=== PATIENT | female | born 1995 | race Caucasian/White ===

== ENCOUNTER → 2016-11-04 | Outpatient (CLI) | payer OTHER ==
--- NOTE | 2016-11-06 09:52 | ECHO ---
DATE OF STUDY: 11/04/2016 REFERRING PHYSICIAN: Dr. Vivien Arnold HEIGHT: 68 inches. WEIGHT: 200 pounds. INDICATION: Shortness of breath. MEASUREMENTS: Left atrium: 3.0 cm Ventricular septum: 0.94 cm Posterior wall: 1.07 cm Left ventricle diastole: 4.8 cm Aortic root: 2.9 cm LVOT: 2.9 cm Inferior vena cava: 1.8 cm (greater than 50% respiratory variation) DOPPLER MEASUREMENTS: Aortic valve velocity: 142 cm/s LVOT velocity: 104 cm/s LVOT VTI: 20.8 cm Mitral E velocity: 76.0 cm/s Mitral A velocity: 47.9 cm/s Mitral deceleration time 197 ms Very mild tricuspid regurgitation. Estimated right ventricle systolic pressure: 24 mmHg assuming a right atrial pressure of 5 mmHg Pulmonary artery acceleration time: 173 ms (normal) MITRAL ANNULAR TISSUE DOPPLER: E prime septal: 11.0 cm/s E prime lateral: 21.8 cm/s DESCRIPTION: Rhythm was sinus. Image quality was adequate. No pericardial effusion. This was a 2D, M-mode, color flow Doppler, and pulse wave Doppler examination and included mitral annular tissue Doppler. Left ventricle is normal in size and internal dimensions. Normal left ventricle (LV) wall motion and wall thickening. Normal LV systolic and diastolic function. Normal right ventricle size and systolic function. Left ventricular ejection fraction (LVEF) 60% by visual estimate. Atria were normal in size. No pericardial effusion. All of the cardiac valves were structurally and functionally normal. Very mild tricuspid regurgitation was present within physiologic limits. Estimated right ventricle systolic pressure normal. CONCLUSIONS: 1. Normal echocardiogram/Doppler. 2. Normal estimated right ventricle systolic pressure. 3. Normal left ventricle size, wall thickness, wall motion, LV systolic function, and LV diastolic function.
== END | disposition home or self-care (01) ==
LOC: M CARPUL 08:25
PROVIDERS: ATTEND Nurse Practitioner Family
DX: R00.2 Palpitations (principal)

== ENCOUNTER → 2022-11-24 | Outpatient (CLI) | payer BC ==
[2022-11-24 10:31] LABS: HEMATOCRIT 38.8 % (36.0-47.0); HEMOGLOBIN 12.2 g/dl (12.0-15.5); MEAN CORPUSCULAR HEMOGLOBIN 29.3 pg (27.0-33.0); MEAN CORPUSCULAR HGB CONC 31.4 g/dl (32.0-36.5); MEAN CORPUSCULAR VOLUME 93.3 fl (80.0-96.0); PLATELET COUNT, AUTOMATED 338 10^3/uL (150-450); RED BLOOD COUNT 4.16 10^6/uL (4.00-5.40)
[2022-11-24 11:00] LABS: TOTAL IRON BINDING CAPACITY 334 UG/DL (250-425)
[2022-11-24 11:01] LABS: ALBUMIN 3.6 G/DL (3.2-5.2); ALKALINE PHOSPHATASE 75 U/L (46-116); ALT/SGPT 22 U/L (7.0-40); AST/SGOT 20 U/L (<34); BILIRUBIN,TOTAL 0.6 MG/DL (0.3-1.2); BLOOD UREA NITROGEN 13 MG/DL (9-23); CALCIUM LEVEL 8.7 MG/DL (8.5-10.1); CARBON DIOXIDE LEVEL 29 MMOL/L (20-31); CHLORIDE LEVEL 104 MMOL/L (98-107); CHOLESTEROL LEVEL 158 MG/DL (<200); CREATININE FOR GFR 0.91 MG/DL (0.55-1.30); GLOMERULAR FILTRATION RATE > 60.0 (>60); GLUCOSE, FASTING 90 MG/DL (60-100); HCG, SERUM QUANTITATIVE < 2.6 MIU/ML (<4.2); HDL CHOLESTEROL 45.1 MG/DL (>40); IRON (FE) 70 UG/DL (50-170); LDL CHOLESTEROL 102.5 MG/DL (<100); NON-HDL-C 113 MG/DL; POTASSIUM SERUM 4.6 MMOL/L (3.5-5.1); SODIUM LEVEL 139 MMOL/L (136-145); TOTAL PROTEIN 6.8 G/DL (5.7-8.2); TRIGLYCERIDES LEVEL 52 MG/DL (<150)
[2022-11-24 11:03] LABS: FERRITIN 52.3 NG/ML (7.3-270.7)
[2022-11-24 11:04] LABS: FOLLICLE STIMULATING HORMONE 1.9 mIU/ML; THYROID STIMULATING HORMONE 1.621 uIU/ML (0.55-4.78)
[2022-11-24 11:05] LABS: PROLACTIN 11.77 NG/ML
== END ==
LOC: M PLALAB 07:36
PROVIDERS: ATTEND Student in an Organized Health Care Education/Training Program
DX: R10.9 Unspecified abdominal pain (principal); D50.9 Iron deficiency anemia, unspecified; N91.2 Amenorrhea, unspecified; E66.01 Morbid (severe) obesity due to excess calories

== ENCOUNTER → 2022-12-02 | Outpatient (CLI) | payer BC | LOC: M WHC 08:02 | PROVIDERS: ATTEND Nurse Practitioner Family | DX: N92.1 Excessive and frequent menstruation with irregular cycle (principal); N94.6 Dysmenorrhea, unspecified ==

== ENCOUNTER → 2022-12-02 | Outpatient (CLI) | payer BC ==
[2022-12-02 13:35] LABS: BASO % 0.5 % (0.0-1.0); EOS # 0.1 10^3/uL (0.0-0.5); EOS % 1.5 % (0.0-3.0); HEMATOCRIT 35.5 % (36.0-47.0); HEMOGLOBIN 11.3 g/dl (12.0-15.5); LYMPH # 2.4 10^3/uL (1.5-5.0); LYMPH % 31.7 % (24.0-44.0); MEAN CORPUSCULAR HEMOGLOBIN 29.5 pg (27.0-33.0); MEAN CORPUSCULAR HGB CONC 31.8 g/dl (32.0-36.5); MEAN CORPUSCULAR VOLUME 92.7 fl (80.0-96.0); MONO # 0.5 10^3/uL (0.0-0.8); NEUTROPHILS # 4.5 10^3/uL (1.5-8.5); PLATELET COUNT, AUTOMATED 358 10^3/uL (150-450); RED BLOOD COUNT 3.83 10^6/uL (4.00-5.40); WHITE BLOOD COUNT 7.6 10^3/uL (4.0-10.0)
[2022-12-02 13:48] LABS: HEMOGLOBIN A1c 4.9 % (4.0-6.0)
[2022-12-02 14:04] LABS: FREE T4 0.97 NG/DL (0.89-1.76); THYROID STIMULATING HORMONE 1.709 uIU/ML (0.55-4.78)
== END ==
LOC: M PLALAB 09:15
PROVIDERS: ATTEND Nurse Practitioner Family
DX: N92.1 Excessive and frequent menstruation with irregular cycle (principal)

== ENCOUNTER → 2022-12-09 | Outpatient (CLI) | payer BC | LOC: M PLAIMG 08:52 | PROVIDERS: ATTEND Student in an Organized Health Care Education/Training Program | DX: R10.9 Unspecified abdominal pain (principal) ==

== ENCOUNTER → 2022-12-14 | Outpatient (REF) | payer BC ==
[2022-12-15 12:17] LABS: GC DNA AMPLIFICATION NEGATIVE (NEGATIVE)
== END ==
LOC: M SFHCWAGY 10:25
PROVIDERS: ATTEND Nurse Practitioner Family
DX: Z11.3 Encounter for screening for infections with a predominantly sexual mode of transmission (principal)

== ENCOUNTER → 2022-12-25 | Outpatient (CLI) | payer BC ==
[2022-12-25 14:56] LABS: HEPATITIS B SURFACE ANTIGEN NEGATIVE (NEGATIVE)
[2022-12-25 15:08] LABS: HIV 1&2 SCREEN CENTAUR NEGATIVE (NEGATIVE)
[2022-12-25 15:16] LABS: HEPATITIS B CORE ANTIBODY IGM NEGATIVE (NEGATIVE)
== END ==
LOC: M PLALAB 09:21
PROVIDERS: ATTEND Nurse Practitioner Family
DX: Z11.3 Encounter for screening for infections with a predominantly sexual mode of transmission (principal)

== ENCOUNTER → 2022-12-30 | Outpatient (CLI) | payer BC | LOC: M LABSMTC 07:42 | PROVIDERS: ATTEND Physician Assistant | DX: Z01.818 Encounter for other preprocedural examination (principal); E66.01 Morbid (severe) obesity due to excess calories ==

== ENCOUNTER 2023-03-25 04:11 | Inpatient (IN) | payer BC, OTHER ==
[2023-03-25] VITALS (13 sets, daily range): BP systolic 124–134; BP diastolic 59–83; O2SAT 88–94
[~2023-03-25] VITALS: Ht 172.7 cm; Wt 141.0 kg
[2023-03-25] MEDS ORDERED: IPRATROPIUM 0.5MG/ALBUTEROL 2.5MG INH SOL UD 3ML (DUONEB) As Ordered ONE (04:20)
[2023-03-25] MEDS ORDERED: IPRATROPIUM 0.5MG/ALBUTEROL 2.5MG INH SOL UD 3ML (DUONEB) NEB ONE (04:25)
[2023-03-25] MEDS ORDERED: ISOVUE-370 76% 100ML VIAL As Ordered ONE (04:39)
[2023-03-25 04:42] LABS: BASO # 0.1 10^3/uL (0.0-0.2); BASO % 0.4 % (0.0-1.0); EOS # 0.1 10^3/uL (0.0-0.5); EOS % 0.8 % (0.0-3.0); HEMATOCRIT 40.7 % (36.0-47.0); HEMOGLOBIN 13.2 g/dl (12.0-15.5); LYMPH # 3.9 10^3/uL (1.5-5.0); LYMPH % 24.9 % (24.0-44.0); MEAN CORPUSCULAR HEMOGLOBIN 29.5 pg (27.0-33.0); MEAN CORPUSCULAR HGB CONC 32.4 g/dl (32.0-36.5); MEAN CORPUSCULAR VOLUME 90.8 fl (80.0-96.0); MONO # 0.9 10^3/uL (0.0-0.8); MONO % 5.8 % (2.0-8.0); NEUTROPHILS # 10.7 10^3/uL (1.5-8.5); NEUTROPHILS % 67.7 % (36.0-66.0); PLATELET COUNT, AUTOMATED 316 10^3/uL (150-450); RED BLOOD COUNT 4.48 10^6/uL (4.00-5.40); WHITE BLOOD COUNT 15.8 10^3/uL (4.0-10.0)
[2023-03-25 04:53] LABS: INR 0.9; PARTIAL THROMBOPLASTIN TIME 24.2 SECONDS (24.8-34.2); PROTHROMBIN TIME 12.3 SECONDS (12.5-14.5)
[2023-03-25 05:10] LABS: LIPASE 34 U/L (12-53)
[2023-03-25 05:11] LABS: CK-MB VALUE MASS < 1.0 NG/ML (<3.6)
[2023-03-25 05:12] LABS: CPK CREATINE PHOSPHOKINASE 76 U/L (34-145); MB/CK RELATIVE INDEX 1.31 (< OR =4)
[2023-03-25 05:13] LABS: ALBUMIN 3.3 G/DL (3.2-5.2); ALKALINE PHOSPHATASE 67 U/L (46-116); ALT/SGPT 12 U/L (7.0-40); AST/SGOT 15 U/L (<34); BILIRUBIN,TOTAL 0.3 MG/DL (0.3-1.2); BLOOD UREA NITROGEN 14 MG/DL (9-23); CALCIUM LEVEL 8.1 MG/DL (8.5-10.1); CARBON DIOXIDE LEVEL 24 MMOL/L (20-31); CHLORIDE LEVEL 106 MMOL/L (98-107); CREATININE FOR GFR 0.99 MG/DL (0.55-1.30); GLOMERULAR FILTRATION RATE > 60.0 (>60); GLUCOSE, FASTING 119 MG/DL (60-100); MAGNESIUM LEVEL 1.6 MG/DL (1.8-2.4); POTASSIUM SERUM 3.9 MMOL/L (3.5-5.1); SODIUM LEVEL 141 MMOL/L (136-145); TOTAL PROTEIN 6.7 G/DL (5.7-8.2)
[2023-03-25 05:26] LABS: HCG, SERUM QUALITATIVE NEGATIVE (NEGATIVE)
[2023-03-25] MEDS ORDERED: MAG SULF 1GM/100ML (MAG RUN) 1 GM in IV 1 EA IV ONE (05:50)
[2023-03-25 06:15] LABS: CK-MB VALUE MASS < 1.0 NG/ML (<3.6)
[2023-03-25 06:16] LABS: CPK CREATINE PHOSPHOKINASE 71 U/L (34-145)
[2023-03-25] MEDS ORDERED: HEPARIN SOD (PORCINE) 5000UNITS/ML 1ML VIAL/SYRINGE IV PRN ×2 (06:30→10:55)
[2023-03-25] MEDS ORDERED: HEPARIN DRIP 25,000 UNITS in IV 1 EA IV SCH (06:30)
[2023-03-25] MEDS ORDERED: HEPARIN SOD (PORCINE) 5000UNITS/ML 1ML VIAL/SYRINGE IV ONE (06:30)
[2023-03-25] MEDS ORDERED: HOME MED LIST COMPLETE! XX SCH (06:45)
[2023-03-25] MEDS ORDERED: LAMO100T3 PO (06:45)
[2023-03-25] MEDS ORDERED: LORY1TAB2 PO (06:45)
[2023-03-25] MEDS ORDERED: LEXA1TAB2 PO (06:45)
[2023-03-25] MEDS ORDERED: GUAI1TAB72 PO (06:45)
[2023-03-25] MEDS ORDERED: ALBUTEROL SULFATE 2.5MG/0.5ML INH NEB SOLN NEB PRN (09:55)
[2023-03-25] MEDS ORDERED: cefTRIAXone SOD 1 GM in D5W MINI-BAG PLUS 50 ML IV SCH (11:00)
[2023-03-25] MEDS ORDERED: DOXYCYCLINE HYCLATE 100 MG in D5W MINI-BAG PLUS 100 ML IV SCH (12:00)
[2023-03-25] MEDS ORDERED: guaiFENesin/CODEINE SYRUP 5 ML UDC PO PRN (13:40)
[2023-03-25] MEDS: ACETAMINOPH W/CODEINE #3 TAB UD PO PRN ×2 (16:39→22:31)
[2023-03-25] MEDS ORDERED: methylPREDNISolone 125MG 2ML VIAL IV ONE (16:55)
[2023-03-25] MEDS: PANTOPRAZOLE 40MG VIAL IV SCH (18:43)
[2023-03-25] MEDS: HEPARIN DRIP 25,000 UNITS in IV 1 EA IV SCH (19:52)
[2023-03-25] MEDS: PIPERACILLIN/TAZOBACTAM SOD 3.375 GM in D5W MINI-BAG PLUS 50 ML IV SCH (20:55)
[2023-03-25] MEDS: DOXYCYCLINE HYCLATE 100MG TABLET PO SCH (21:52)
[2023-03-25] MEDS: lamoTRIgine 100MG TAB PO SCH (21:52)
[2023-03-25] MEDS: DEXTROMETHORPHAN 60MG/10ML SUSP 90ML BTL(DELSYM) PO SCH (21:52)
[2023-03-26] VITALS (29 sets, daily range): BP systolic 117–135; BP diastolic 64–85; O2SAT 90–97
[2023-03-26] MEDS: PIPERACILLIN/TAZOBACTAM SOD 3.375 GM in D5W MINI-BAG PLUS 50 ML IV SCH ×4 (02:46→20:57)
[2023-03-26 05:43] LABS: ABG BASE EXCESS -2.4 (-2.0-2.0); ABG HCO3 21.8 MMOL/L (22.0-26.0); ABG O2 SATURATION 94.4 % (95.0-99.0); ABG PARTIAL PRESSURE CO2 35.8 mmHg (35.0-45.0); ABG PARTIAL PRESSURE O2 71.5 mmHg (75.0-100.0); ABG STANDARD HCO3 22.4 MMOL/L. (22.0-26.0); ABG TOTAL CO2 22.9 MMOL/L (22.0-29.0); ABG pH (ARTERIAL) 7.402 UNITS (7.350-7.450)
[2023-03-26] MEDS: HEPARIN DRIP 25,000 UNITS in IV 1 EA IV SCH ×2 (06:20→16:24)
[2023-03-26 07:25] LABS: BASO % 0.2 % (0.0-1.0); HEMATOCRIT 37.2 % (36.0-47.0); HEMOGLOBIN 11.8 g/dl (12.0-15.5); LYMPH # 2.2 10^3/uL (1.5-5.0); LYMPH % 17.5 % (24.0-44.0); MEAN CORPUSCULAR HEMOGLOBIN 28.9 pg (27.0-33.0); MEAN CORPUSCULAR HGB CONC 31.7 g/dl (32.0-36.5); MEAN CORPUSCULAR VOLUME 91.2 fl (80.0-96.0); MONO # 0.6 10^3/uL (0.0-0.8); MONO % 4.5 % (2.0-8.0); NEUTROPHILS # 9.8 10^3/uL (1.5-8.5); NEUTROPHILS % 77.5 % (36.0-66.0); PLATELET COUNT, AUTOMATED 276 10^3/uL (150-450); RED BLOOD COUNT 4.08 10^6/uL (4.00-5.40); WHITE BLOOD COUNT 12.6 10^3/uL (4.0-10.0)
[2023-03-26] MEDS: ACETAMINOPH W/CODEINE #3 TAB UD PO PRN ×2 (07:38→17:42)
[2023-03-26 07:44] LABS: BLOOD UREA NITROGEN 11 MG/DL (9-23); CARBON DIOXIDE LEVEL 22 MMOL/L (20-31); CHLORIDE LEVEL 107 MMOL/L (98-107); CREATININE FOR GFR 0.73 MG/DL (0.55-1.30); GLOMERULAR FILTRATION RATE > 60.0 (>60); GLUCOSE, FASTING 151 MG/DL (60-100); POTASSIUM SERUM 4.5 MMOL/L (3.5-5.1); SODIUM LEVEL 139 MMOL/L (136-145)
[2023-03-26] MEDS: ESCITALOPRAM OXALATE 10 MG TAB (LEXAPRO) PO SCH (08:38)
[2023-03-26] MEDS: DEXTROMETHORPHAN 60MG/10ML SUSP 90ML BTL(DELSYM) PO SCH ×2 (08:38→22:17)
[2023-03-26] MEDS: DOXYCYCLINE HYCLATE 100MG TABLET PO SCH ×2 (08:38→21:42)
[2023-03-26] MEDS: SENOKOT S TAB PO SCH ×2 (14:40→21:42)
[2023-03-26] MEDS: MIRALAX *UNIT DOSE* 17GM PACKET PO SCH (14:41)
[2023-03-26 15:20] LABS: INR 0.91; PROTHROMBIN TIME 12.4 SECONDS (12.5-14.5)
[2023-03-26 15:21] LABS: PARTIAL THROMBOPLASTIN TIME 68.8 SECONDS (24.8-34.2)
[2023-03-26] MEDS: PANTOPRAZOLE 40MG VIAL IV SCH (17:40)
[2023-03-26] MEDS: lamoTRIgine 100MG TAB PO SCH (21:42)
[2023-03-27] VITALS (13 sets, daily range): BP systolic 106–114; BP diastolic 55–68; O2SAT 95–97
[2023-03-27] MEDS: PIPERACILLIN/TAZOBACTAM SOD 3.375 GM in D5W MINI-BAG PLUS 50 ML IV SCH ×2 (01:41→08:19)
[2023-03-27] MEDS: HEPARIN DRIP 25,000 UNITS in IV 1 EA IV SCH (01:44)
[2023-03-27 05:21] LABS: BASO # 0.1 10^3/uL (0.0-0.2); BASO % 0.7 % (0.0-1.0); EOS # 0.1 10^3/uL (0.0-0.5); EOS % 0.8 % (0.0-3.0); HEMATOCRIT 34.3 % (36.0-47.0); HEMOGLOBIN 10.9 g/dl (12.0-15.5); LYMPH # 4.8 10^3/uL (1.5-5.0); LYMPH % 39.8 % (24.0-44.0); MEAN CORPUSCULAR HEMOGLOBIN 29.5 pg (27.0-33.0); MEAN CORPUSCULAR HGB CONC 31.8 g/dl (32.0-36.5); MEAN CORPUSCULAR VOLUME 92.7 fl (80.0-96.0); MONO # 0.6 10^3/uL (0.0-0.8); MONO % 5.2 % (2.0-8.0); NEUTROPHILS # 6.4 10^3/uL (1.5-8.5); NEUTROPHILS % 53.2 % (36.0-66.0); PLATELET COUNT, AUTOMATED 231 10^3/uL (150-450)
[2023-03-27 06:36] LABS: BLOOD UREA NITROGEN 17 MG/DL (9-23); CARBON DIOXIDE LEVEL 26 MMOL/L (20-31); CHLORIDE LEVEL 107 MMOL/L (98-107); CREATININE FOR GFR 1.04 MG/DL (0.55-1.30); GLOMERULAR FILTRATION RATE > 60.0 (>60); GLUCOSE, FASTING 97 MG/DL (60-100); POTASSIUM SERUM 4.6 MMOL/L (3.5-5.1); SODIUM LEVEL 141 MMOL/L (136-145)
[2023-03-27] MEDS: DEXTROMETHORPHAN 60MG/10ML SUSP 90ML BTL(DELSYM) PO SCH ×2 (08:19→21:56)
[2023-03-27] MEDS: DOXYCYCLINE HYCLATE 100MG TABLET PO SCH (08:20)
[2023-03-27] MEDS: SENOKOT S TAB PO SCH ×2 (08:20→21:56)
[2023-03-27] MEDS: MIRALAX *UNIT DOSE* 17GM PACKET PO SCH (08:20)
[2023-03-27] MEDS: ESCITALOPRAM OXALATE 10 MG TAB (LEXAPRO) PO SCH (08:20)
[2023-03-27] MEDS: ONDANSETRON 4MG 2ML VIAL IV PRN ×2 (10:28→20:40)
[2023-03-27] MEDS: RIVAROXABAN 15MG TAB (XARELTO) PO SCH ×2 (10:28→18:07)
[2023-03-27] MEDS ORDERED: ACETAMINOPHEN 500 MG TAB PO ONE (16:55)
[2023-03-27] MEDS: PANTOPRAZOLE 40MG VIAL IV SCH (18:07)
[2023-03-27] MEDS: AUGMENTIN 875 MG TAB PO SCH (21:56)
[2023-03-27] MEDS: lamoTRIgine 100MG TAB PO SCH (21:56)
[2023-03-28 03:45] VITALS: BP 111/56
[2023-03-28 06:38] LABS: BASO # 0.1 10^3/uL (0.0-0.2); BASO % 0.5 % (0.0-1.0); EOS # 0.2 10^3/uL (0.0-0.5); EOS % 1.7 % (0.0-3.0); HEMATOCRIT 35.2 % (36.0-47.0); HEMOGLOBIN 11.1 g/dl (12.0-15.5); LYMPH # 2.2 10^3/uL (1.5-5.0); LYMPH % 23.2 % (24.0-44.0); MEAN CORPUSCULAR HGB CONC 31.5 g/dl (32.0-36.5); MEAN CORPUSCULAR VOLUME 91.9 fl (80.0-96.0); MONO # 0.6 10^3/uL (0.0-0.8); MONO % 6.1 % (2.0-8.0); NEUTROPHILS # 6.5 10^3/uL (1.5-8.5); NEUTROPHILS % 68.1 % (36.0-66.0); PLATELET COUNT, AUTOMATED 257 10^3/uL (150-450); RED BLOOD COUNT 3.83 10^6/uL (4.00-5.40); WHITE BLOOD COUNT 9.6 10^3/uL (4.0-10.0)
[2023-03-28 06:54] LABS: BLOOD UREA NITROGEN 16 MG/DL (9-23); CALCIUM LEVEL 8.3 MG/DL (8.5-10.1); CARBON DIOXIDE LEVEL 28 MMOL/L (20-31); CHLORIDE LEVEL 105 MMOL/L (98-107); GLOMERULAR FILTRATION RATE > 60.0 (>60); GLUCOSE, FASTING 94 MG/DL (60-100); POTASSIUM SERUM 4.4 MMOL/L (3.5-5.1); SODIUM LEVEL 140 MMOL/L (136-145)
[2023-03-28] MEDS: RIVAROXABAN 15MG TAB (XARELTO) PO SCH (07:59)
[2023-03-28] MEDS: ESCITALOPRAM OXALATE 10 MG TAB (LEXAPRO) PO SCH (08:00)
[2023-03-28] MEDS: AUGMENTIN 875 MG TAB PO SCH (08:00)
[2023-03-28] MEDS: SENOKOT S TAB PO SCH (08:00)
[2023-03-28] MEDS: MIRALAX *UNIT DOSE* 17GM PACKET PO SCH (08:01)
[2023-03-28] MEDS: DEXTROMETHORPHAN 60MG/10ML SUSP 90ML BTL(DELSYM) PO SCH (08:01)
[2023-03-28] MEDS ORDERED: XARE15TA PO (08:19)
[2023-03-28] MEDS ORDERED: XARE20TA PO (08:19)
[2023-03-28] MEDS ORDERED: ONDA4TAB6 PO (08:19)
[2023-03-28] MEDS ORDERED: AMOX875T2 PO (08:19)
== END 2023-03-28 10:15 | disposition home health service (06) | DRG 175 ==
LOC: M ED 04:11 → M ED INP 08:04 → ENRESERV 09:23 → M PCU 10:08
PROVIDERS: ADMIT Internal Medicine Nephrology; ATTEND Internal Medicine Nephrology
PROC: B246ZZZ Ultrasonography of Right and Left Heart (ICD-10-PCS; principal; 2023-03-25)
DX: I26.99 Other pulmonary embolism without acute cor pulmonale (principal); J96.01 Acute respiratory failure with hypoxia; J18.9 Pneumonia, unspecified organism; Z68.41 Body mass index [BMI] 40.0-44.9, adult; K59.00 Constipation, unspecified; E66.01 Morbid (severe) obesity due to excess calories; I27.20 Pulmonary hypertension, unspecified; F31.9 Bipolar disorder, unspecified; K20.90 Esophagitis, unspecified without bleeding; F41.9 Anxiety disorder, unspecified; E83.42 Hypomagnesemia; L68.0 Hirsutism; G47.33 Obstructive sleep apnea (adult) (pediatric); D50.9 Iron deficiency anemia, unspecified; N92.6 Irregular menstruation, unspecified; Z79.899 Other long term (current) drug therapy; Z91.030 Bee allergy status; Z91.038 Other insect allergy status